=== PATIENT | female | born 1950 | race Caucasian/White ===

== ENCOUNTER 2019-10-23 10:40 | Outpatient (CLI) | payer MEDICARE ==
[~2019-10-23] VITALS: Ht 165.1 cm; Wt 112.7 kg
--- NOTE | ~2019-10-23 | OP ---
PATIENT NAME: MC PERALTA MEDICAL RECORD: [id number] :52 LOCATION:D.CAT ADMISSION DATE: SURGEON: CHERYL BARGER MD DATE OF OPERATION: 10/23/2019 PROCEDURES: 1. PTCA stent RCA. 2. PTCA stent LAD. 3. IFR LAD. 4. Left heart catheterization. 5. Selective coronary angiography. 6. Left ventriculogram. INDICATION: Angina and coronary artery disease. PROCEDURE PERFORMED: After informed consent was obtained detailed description of risks, benefits as well as alternative therapies, the patient elected to proceed with angiogram and angioplasty. The right femoral area was prepped and draped in normal sterile fashion. Right femoral artery was cannulated via modified Seldinger technique with placement of 6-Greenlandic sheath. All catheters exchanged through this sheath. FINDINGS: Left ventriculogram performed in standard 30-degree DICKSON view, reveals good cardiac wall motion, ejection fraction estimated 50% to 55%. SELECTIVE CORONARY ANGIOGRAPHY: 1. Left main is with no significant angiographic disease. 2. Left anterior descending has previously placed stents. Just after that, there appears to be 70% stenosis and IFR is abnormal. 3. Left circumflex has moderate irregularities, but no flow-limiting stenosis. The right coronary has 95% stenosis at the ostium and there is extreme pressure damping of the catheter with engagement. IMPROVEMENT AUDITOR STENT OF THE RCA: The stent used was a 2.5 x 12 mm Delight. Result was 0% residual stenosis. PTCA STENT OF THE LAD: The stent used was a 2.5 x 15 mm Delight. Result was 0% residual stenosis. OVERALL IMPRESSION: Successful PTCA stent of the LAD and RCA going from 70% to 90% initial stenosis to 0% residual. TRANSINT:[id number] Voice Confirmation ID: [id number] DOCUMENT ID: [id number] CHERYL BARGER MD CC: [id number] DICTATION DATE: 10/23/19 1505 RADIO COMMUNICATIONS SUPERINTENDENT: 10/23/192033 [facility] CLI 10/23/19 [place] [id number]
--- NOTE | ~2019-10-23 | HEMODYNAMI ---
PATIENT:MC PERALTA MEDICAL RECORD: [id number] : 52 LOCATION:[place] ADMISSION DATE: 10/23/19 Generatedon:10/23/201915:12 Patient name: MC PERALTA Patient #: [id number] SSN: : 1950 Date of study: 10/23/2019 Page: Of Hemodynamic Procedure Report Patient Data Patient Demographics Procedure consent was obtained First Name: MC Gender: Female Last Name: FABIAN : 1950 [facility] Initial: SARAY Age: 69 year(s) Patient #: [id number] Race: Additional ID: [id number] Contact details Address: [place] [address] State: [place] City: [place] Zip code: [address] Past Medical History Allergies Allergen Reaction Date Comments Reported Other allergy 10/23/2019 rocephin Admission Admission Data Admission Date: 10/23/2019 Admission Time: 10:40 Arrival Date: 10/23/2019 Arrival Time: 0:00 Admit Source: Other Insurance Payor: Medicare [facility] #: [id number] Height (in.): 64.96 BSA: 2.17 (m2) Height (cm.): 165 BMI: 41.51 (kg/m2) Weight (lbs.): 249.12 Weight (kg.): 113 Lab Results Lab Result Date: 10/23/2019 Lab Result Time: 0:00 Biochemistry Name Units Result Min Max BUN mg/dl 19 --(----)*- 7 18 Creatinine mg/dl 1.2 --(---*)-- 0.6 1.3 eGFR ml/min 47 *-(----)-- 90 120 NONAFRICAN CBC Name Units Result Min Max Hematocrit % 37.8 *-(----)-- 42 54 Hemoglobin g/dl 12 *-(----)-- 13.5 17.5 Procedure Procedure Types Cath Procedure Diagnostic Procedure LHC LHC w/Coronaries Sedation Charges Moderate Sedation up to 15 minutes PCI Procedure Coronary Stent Coronary Stent Initial x2 Hemochron ACT Test Procedure Description Procedure Date Procedure Date: 10/23/2019 Procedure Start Time: 14:42 Procedure End Time: 15:06 Procedure Staff Name Function Rosas Myles MD Performing Physician Maria Fernanda Meyers RT Monitor Daija Yin RT Scrub Maricruz Garcia RN Nurse Indication Angina Procedure Data Cath Procedure Fluoroscopy Diagnostic fluoroscopy Total fluoroscopy Time: 4.6 time: 4.6 min min Diagnostic fluoroscopy Total fluoroscopy dose: dose: 642.64 mGy 642.64 mGy Contrast Material Contrast Material Type Amount (ml) Isovue 300 101 Entry Location Entry Primary Successful Side Size Upsize Upsize Entry Closure Succes sful Closure Location (Fr) 1 (Fr) 2 (Fr) Remarks Device Remarks Femoral Right 5 Fr 6 Fr Exoseal artery Short Estimated blood loss: 10 ml Diagnostic catheters Device Type Used For End Catheter Placement MULTIPACK Pigtail 5 Fr LV Angiography catheter MULTIPACK JL 4.0 5Fr Left Coronary catheter Angiography MULTIPACK 3DRC 5Fr Right Coronary catheter Angiography Procedure Complications No complications Procedure Medications Medication Administration Route Dosage 0.9% NaCl I.V. 100 ml/hr Oxygen etCO2 Nasal cannula 2 l/min Lidocaine 2% added to field 20 Heparin Flush Bag added to field 2 bags (1000units/500ml NS) Versed I.V. 2 mg Fentanyl I.V. 50 mcg Versed I.V. 2 mg Fentanyl I.V. 50 mcg Versed I.V. 1 mg Heparin Bolus I.V. 4000 units Integrilin (Bolus I.V. 10.2 ml 2mg/ml) Plavix P.O. 600 mg Hemodynamics Rest BSA: 2.17 (m2) HGB: 12 (g/dl) O2 Consumption: Estimated: 193.72 (ml/min) O2 Cons umption indexed: Estimated:89.27 (ml/min/m) Heart Rate: 61 (bpm) Snapshots Pre Cath Intra NCS Post Cath Vital Signs Time Heart Resp SPO2 etCO2 NIBP (mmHg) Rhythm Pain Sedation Rate (ipm) (%) (mmHg) Status Level (bpm) 14:19:38 71 20 96 26.6 121/58(92) NSR 0 (11) 10(A) , No pain 14:23:52 81 18 97 25.8 120/59(82) NSR 0 (11) 10(A) , No pain 14:28:08 65 15 98 29.6 102/50(69) NSR 0 (11) 10(A) , No pain 14:32:16 67 15 97 27.3 114/53(88) NSR 0 (11) 10(A) , No pain 14:36:26 68 13 98 27 113/53(90) NSR 0 (11) 10(A) , No pain 14:40:38 66 13 97 12 95/53(79) NSR 0 (11) 10(A) , No pain 14:44:46 65 13 97 15.2 103/51(86) NSR 0 (11) 10(A) , No pain 14:48:54 67 13 97 15.7 107/57(85) NSR 0 (11) 10(A) , No pain 14:53:04 65 12 98 16 105/53(73) NSR 0 (11) 10(A) , No pain 14:57:15 70 16 97 28.1 119/53(81) NSR 0 (11) 10(A) , No pain 15:01:28 68 16 94 28.1 134/64(98) NSR 0 (11) 10(A) , No pain 15:06:27 70 15 96 24.3 130/65(101) NSR 0 (11) 10(A) , No pain Medications Time Medication Route Dose Verified Delivered Reason Notes Effectiveness by by 14:18:18 0.9% NaCl I.V. 100 Rosas Maricruz used for ml/hr Shameka Garcia houseman 14:18:25 Oxygen etCO2 2 Rosas Maricruz used for Nasal l/min Shameka Garcia procedure cannula RN 14:18:29 Lidocaine 2% added 20ml Rosas Pillai for local to vial Shameka Myles MD anesthetic field 14:18:33 Heparin Flush added 2 Rosas Rosas used for Bag to bags Shameka Myles MD procedure (1000units/500ml field NS) 14:22:00 Heparin Bolus I.V. 4000 Rosas Maricruz for verif ied units Shameka Garcia anticoagulation with Dr. ESDRAS Myles 14:39:27 Versed I.V. 2 mg Rosas Maricruz for sedation Shameka Garcia RN 14:39:40 Fentanyl I.V. 50 Rosas Gimenezyla for sedation mcg Shameka Garcia RN 14:43:16 Versed I.V. 2 mg Rosas Gimenezyla for sedation Shameka Garcia RN 14:43:20 Fentanyl I.V. 50 Rosas Maricruz for sedation mcg Shameka Garcia RN 14:49:15 Versed I.V. 1 mg Rosas Gimenezyla for sedation Shameka Garcia RN 14:53:16 Integrilin I.V. 10.2 Rosas Gimenezyla for (Bolus 2mg/ml) ml Shameka Garcia antiplatelet RN therapy 14:53:29 Plavix P.O. 600 Rosas Ropera for mg Shameka Garcia antiplatelet RN therapy Procedure Log Time Note 13:48:04 Informed consent obtained and on chart 13:49:16 Diagnostic Cath Status : Elective 13:50:13 Indication : Angina 13:50:25 Patient allergic to Other allergyrocephin 13:50:30 Arrival Date: 10/23/2019 12:00:00 AM 13:50:31 Admit Source: Other 13:50:35 Insurance Payor : Medicare 14:06:31 Patient Height : 64.96 inches 14:06:35 Patient Weight : 249.12 lbs 14:07:16 Lab Result : eGFR NONAFRICAN 47 ml/min 14:07:16 Lab Result : Creatinine 1.2 mg/dl 14:07:16 Lab Result : BUN 19 mg/dl 14:07:16 Lab Result : Hematocrit 37.8 % 14:07:16 Lab Result : Hemoglobin 12 g/dl 14:07:33 Procedure Status Elective Heart Cath (OP). 14:07:39 Maricruz Garcia RN sent for patient. Start room use. 14:07:43 Time tracking: Regular hours (M-F 7:00 - 5:00) 14:07:51 Plan of Care:Hemodynamics will remain stable., Cardiac rhythm will remain stable., Comfort level will be maintained., Respiratory function will remain adequate., Patient/ family verbilizes understanding of procedure., Procedure tolerated without complication., Recovers from procedure without complications.. 14:11:08 Patient received from Pre/Post Procedure Room to [facility] 3 Alert and oriented. Tansferred to table in Supine position. 14:11:10 Warm blankets applied, and batsheva hugger turned on for patient comfort. 14:11:10 Correct patient and procedure confirmed by team. 14:11:11 ECG and BP/O2 sat monitors applied to patient. 14:18:10 Vital chart was started 14:18:18 0.9% NaCl 100 ml/hr I.V. was administered by Maricruz Garcia RN; used for procedure; Verbal order read back and verified. 14:18:25 Oxygen 2 l/min etCO2 Nasal cannula was administered by Maricruz Garcia RN ; used for procedure; Verbal order read back and verified. 14:18:29 Lidocaine 2% 20ml vial added to field was administered by Rosas Myles MD; for local anesthetic; Verbal order read back and verified. 14:18:33 Heparin Flush Bag (1000units/500ml NS) 2 bags added to field was administered by Rosas Myles MD; used for procedure; Verbal order read back and verified. 14:22:00 Heparin Bolus 4000 units I.V. was administered by Maricruz Garcia RN; for anticoagulation; verified with Dr. Myles Verbal order read back and verified. 14:24:20 Baseline sample Acquired. 14:24:24 Rhythm: sinus rhythm 14:24:27 Full Disclosure recording started 14:24:27 - 14:24:34 H&P Date Dictated: 10/23/2019 H&P Addendum completed by physician on day of procedure. (MUST COMPLETE FOR ALL OUTPATIENTS), New H&P dictated by physician.. 14:24:36 Pre-procedure instructions explained to patient. 14:24:37 Pre-op teaching completed and patient verbalized understanding. 14:24:45 Family in patients room. 14:24:48 Patient NPO since Midnight. 14:24:51 Is the patient allergic to Iodine/contrast media? No. 14:25:00 Was the patient premedicated? Yes 14:25:04 Is patient on blood thinner?No 14:25:08 Patient diabetic? Yes. 14:25:25 If diabetic: On Metformin? No 14:25:40 ----Pre-sedation anethsthesia assessment.---- 14:25:44 Previous problem with sedation/anesthesia? No ? 14:25:47 Snore? Yes 14:25:49 Sleep apnea? No 14:25:52 Deviated septum? No 14:25:55 Opens mouth fully? Yes 14:25:59 Sticks out tongue? Yes 14:26:13 Airway obstruction? Yes COPD 14:26:22 Dentures? No ? 14:26:27 Pre procedure: right dorsailis pedis pulse 1+ Palpable, but thready & weak; easily obliterated 14:26:46 IV patent on arrival in left forearm with 0.9% NaCl at [facility]. 14:27:06 Lab results completed and on chart. 14:30:35 Stress Test: no; N/A ? 14:33:42 Risk of Mortality: 0.1 14:33:47 Risk of blood transfusion: 1.7 14:33:51 Risk of JOSE: 2.3 14:33:57 Right groin area was prepped with chlora-prep and draped in sterile fashion 14:33:59 Alarms reviewed by R. N. 14:33:59 Sharps counted by scrub and verified by R.N. 14:34:07 Use device set Femoral Dx 14:34:09 ACIST Syringe (40075) opened to sterile field. 14:34:09 Bag Decanter (2002S) opened to sterile field. 14:34:10 Medline Cath Pack ([id number]) opened to sterile field. 14:34:12 ACIST Hand Control (58483) opened to sterile field. 14:34:13 ACIST Manifold (00873) opened to sterile field. 14:34:14 DIAGNOSTIC Multipack 5Fr catheter set ([id number]) opened to sterile field. 14:34:14 Tegaderm 4 x 4 (1626W) opened to sterile field. 14:34:17 SHEATH 5FR [place] (NSV330) opened to sterile field. 14:34:17 GIGIALD Guide Wire (123-938) opened to sterile field. 14:35:38 Zero performed for pressure channel P1 14:38:02 Zero performed for pressure channel P1 14:38:26 Physician arrived 14:38:27 --------ALL STOP TIME OUT------ 14:38:28 Final Timeout: patient, procedure, and site verified with staff and physician. All members of the team are in agreement. 14:38:30 Right groin site verified by team. 14:38:35 Fire Safety Assessment: A--An alcohol-based skin anteseptic being used preoperatively., C--Open oxygen or nitrous oxide is being used., D--An ESU, laser, or fiber-optic light is being used. 14:38:38 Physical assessment completed. ASA score P 2 - A patient with mild systemic disease as per Rosas Myles MD. 14:38:45 3a) 45-59 Moderately reduced kidney function. 14:38:49 Maximum allowable contrast dose (3.7 X eGFR X 0.75)130 ml. 14:38:55 Sedation plan: IV Moderate Sedation Medication:Versed, Fentanyl 14:39:27 Versed 2 mg I.V. was administered by Maricruz Garcia RN; for sedation; Verbal order read back and verified. 14:39:40 Fentanyl 50 mcg I.V. was administered by Maricruz Garcia RN; for sedation ; Verbal order read back and verified. 14:42:12 Procedure started. 14:42:50 Local anesthetic to right femoral artery with Lidocaine 2% by Rosas Myles MD.INITIAL ACCESS ONLY 14:43:16 Versed 2 mg I.V. was administered by Maricruz Garcia RN; for sedation; Verbal order read back and verified. 14:43:17 A 5 Fr sheath was inserted into the Right Femoral artery 14:43:20 Fentanyl 50 mcg I.V. was administered by Maricruz Garcia RN; for sedation ; Verbal order read back and verified. 14:43:32 A MULTIPACK Pigtail 5 Fr catheter was advanced over the wire and used for LV Angiography. 14:43:37 LV gram done using DICKSON 14:43:40 Injector settings: Ml/sec: 5, Volume: 15, 14:44:01 EF : 60 % 14:44:06 Catheter removed. 14:44:12 A MULTIPACK JL 4.0 5Fr catheter was advanced over the wire and used for Left Coronary Angiography. 14:44:27 LCA angiography performed. 14:44:31 Injector settings: Ml/sec: 3, Volume: 6, 14:45:08 INFLATOR Merit BasixCompak (DP4419) opened to sterile field. 14:45:[address] Verrata Plus pressure wire (48008S) opened to sterile field. 14:45:38 Catheter removed. 14:46:06 A MULTIPACK 3DRC 5Fr catheter was advanced over the wire and used for Right Coronary Angiography. 14:46:57 Injector settings: Ml/sec: 3, Volume: 6, 14:47:02 Catheter removed. 14:47:09 Proceeding to intervention. 14:47:54 SHEATH 6FR [place] (PGY443) opened to sterile field. 14:49:09 Sheath upsized to a 6 Fr Short. 14:49:15 Versed 1 mg I.V. was administered by Maricruz Garcia RN; for sedation; Verbal order read back and verified. 14:49:33 GUIDE 6FR XBLAD 3.5 catheter ([id number]) opened to sterile field. 14:49:44 6 Fr XBLAD 3.5 guide catheter was inserted over the wire 14:49:51 FFR/IFR wire advanced. 14:51:15 Wire advanced across lesion. 14:51:26 ACC Pre-intervention PERRY Flow is 3. 14:51:38 Pre PCI Site: [place] mLAD has 70% stenosis. 14:52:47 mLAD lesion measured at 0.86 with IFR 14:53:16 Integrilin (Bolus 2mg/ml) 10.2 ml I.V. was administered by Maricruz humphreys RN; for antiplatelet therapy; Verbal order read back and verified. 14:53:29 Plavix 600 mg P.O. was administered by Maricruz Garcia RN; for antiplatelet therapy; Verbal order read back and verified. 14:53:48 Place stent Inflation Number: 1 A JESSIKA RX 2.5 x 18 stent ([id number]) was prepped and advanced across the Mid LAD . The stent was deployed at 19 SILVIA for 0:00 (min:sec) . 14:53:58 Stent catheter was removed intact over wire. 14:54:01 Wire removed. 14:54:02 Guide catheter removed. 14:54:05 ACC Post-intervention PERRY Flow is 3. 14:54:14 Post PCI Site: [place] mLAD has 0% stenosis. 14:54:18 GUIDE 6FR HS I catheter (LA6HSI) opened to sterile field. 14:55:06 6 Fr HS1 guide catheter was inserted over the wire 14:55:39 FFR/IFR wire advanced. 14:55:59 Wire removed. 14:56:22 CHOICE PT Extra Support 182cm wire ([id number]) opened to sterile field. 14:56:36 CHOICE PT 180 wire advanced. 14:57:02 Pre PCI Site: [place] RCA has 95% stenosis. 14:57:12 ACC Pre-intervention PERRY Flow is 3. 14:58:44 Place stent Inflation Number: 1 A JESSIKA RX 2.5 x 12 stent ([id number]) was prepped and advanced across the Prox RCA . The stent was deployed at 19 SILVIA for 0:00 (min:sec) . 14:59:34 EXOSEAL 6Fr (EX600) opened to sterile field. 14:59:41 Stent catheter was removed intact over wire. 14:59:42 Wire removed. 14:59:43 Guide catheter removed. 14:59:48 ACC Post-intervention PERRY Flow is 3. 15:00:04 Sheath removed intact; hemostasis achieved with Exoseal to the Right Femoral artery. 15:00:07 Procedure ended.(Physican Out) 15:00:44 Contrast amount:Isovue 300 101ml. 15:00:53 Fluoroscopy time 04.60 minutes. 15:01:06 Fluoroscopy dose: 642.64 mGy 15:01:06 Flurop Dose total: 642.64 15:01:19 Dose Area Product 3600.90 mGy/cm. 15:01:23 Maximum allowable dose exceeded? No. 15:01:25 Sharps counted by scrub and verified by R.N. 15:01:27 Insertion/operative site no bleeding no hematoma. 15:01:32 Post-op/insertion site Right Femoral artery dressed using a 4 x 4 and Tegaderm. 15:02:16 Post right femoral artery:stable 15:02:18 Post Procedure Pulses reassessed and unchanged 15:02:22 Post-procedure physical assessment completed. ASA score P 2 - A patient with mild systemic disease as per Rosas Myles MD. 15:02:26 Post procedure rhythm: unchanged. 15:02:30 Estimated blood loss: 10 ml 15:02:32 Post procedure instruction explained to patient.Patient verbalizes understanding. 15:02:33 Patient needs reinforcement of post procedure teaching. 15:03:58 ACT drawn and resulted at 317 seconds. (normal therapeutic range 180-24 0 seconds). 15:05:04 Procedure type changed to Cath procedure, Diagnostic procedure, [facility], C w/Coronaries, Sedation Charges, Moderate Sedation up to 15 minutes, PCI procedure, Coronary Stent, Coronary Stent Initial x2, Hemochron ACT Test 15:05:07 Procedure and supply charges have been captured, reviewed, submitted an d are correct. 15:06:17 Procedure Complication : No complications 15:06:25 Vital chart was stopped 15:06:29 [facility] Findings: MVD- PCI performed (see procedure note) 15:06:31 Operative report dictated upon procedure completion. 15:06:32 See physician's report for complete and final results. 15:06:49 Report given to Pre/Post Procedure Room. 15:06:54 Patient transfered to Pre/Post Procedure Room with Stretcher. 15:06:57 Procedure ended. 15:06:57 Full Disclosure recording stopped 15:07:18 ACC-PCI Only Patient was given prescriptions, or instructed by Rosas Myles MD to start/continue the following medications upon discharge: Plavix 15:09:05 End room use (Document Last) Intervention Summary Intervention Notes Time ActionType Lesion and Equipment Used Action# Pressure Duration Attributes 14:53:48 Place stent Mid LAD JESSIKA RX 2.5 x 1 19 00:00 18 stent ([id number]) 14:58:44 Place stent Prox RCA JESSIKA RX 2.5 x 1 19 00:00 12 stent ([id number]) Device Usage Item Name Manufacture Quantity Catalog Number Hospital Part Current Minimal Lot# / Charge Number Stock Stock Serial# Code ACIST Syringe Acist 1 26624 924250 250144 861962 20 (33913) Medical Systems Inc Bag Decanter Microtek 1 [id number] 56309 164542 5 () Medical Inc. Medline Cath Medline 1 [id number] 839239 78839 913032 5 Pack ([id number]) ACIST Hand Acist 1 04355 337507 583578 940414 5 Control Medical (63691) Systems Inc ACIST Manifold Acist 1 92663 801316 300666 659748 5 (26676) Medical Systems Inc DIAGNOSTIC Cardinal 1 MC7544 478288 94760 807254 30 Multipack 5Fr Health catheter set ([id number]) Tegaderm 4 x 4 3M 1 1626W 126576 987722 039836 5 (1626W) SHEATH 5FR Terumo 1 HQW081 976126 312682 077658 5 [place] (HLW228) EMERALD Guide Cardinal 1 502-455 399777 683524 222334 5 Wire (502-455) Health MULTIPACK Cardinal 1 989424 5 Pigtail 5 Fr Health catheter MULTIPACK JL Cardinal 1 105778 5 4.0 5Fr Health catheter INFLATOR Merit Merit 1 JH2902 166462 294059 404556 15 [employer] ([id number]) [address] 1 20337B 940786 [id number] 847774 5 Verrata Plus pressure wire (01527Z) MULTIPACK 3DRC Cardinal 1 230639 5 5Fr catheter Health SHEATH 6FR Terumo 1 WYZ813 835922 463864 710820 40 [place] (SLS919) GUIDE 6FR Cardinal 1 [id number] 799812 689280 652218 10 XBLAD 3.5 Health catheter ([id number]) JESSIKA RX 2.5 x Medtronic 1 [id number] 809769 3891676 568796 5 [id number] 18 stent ([id number]) GUIDE 6FR HS I Medtronic 1 LA6HSI 739729 79570 475872 1 catheter (LA6HSI) CHOICE PT Frederick 1 [id number] 612219 248304 322333 5 Extra Support Scientific 182cm wire ([id number]) JESSIKA RX 2.5 x Medtronic 1 [id number] 742509 5696605 341294 5 [id number] 12 stent ([id number]) EXOSEAL 6Fr Cardinal 1 EX600 262388 343279 590119 10 (EX600) Health Signature Audit [place] Stage Time Signature Unsigned Intra-Procedure 10/23/2019 Maria Fernanda 3:09:27 PM Luiig RT(R) (CV) Intra-Procedure 10/23/2019 Maricruz Garcia 3:11:37 PM RN Intra-Procedure 10/23/2019 Rosas Myles 3:12:01 PM MD [facility] [address] [place] [address]
[2019-10-23] MEDS ORDERED: TRESIBA FL100 UNIT/1 SC (11:06)
[2019-10-23] MEDS ORDERED: TAZTIA XT360 MG PO (11:07)
[2019-10-23] MEDS ORDERED: BUPROPION XL300 MG PO (11:07)
[2019-10-23] MEDS ORDERED: INVOKANA300 MG PO (11:08)
[2019-10-23] MEDS ORDERED: POTASSIUM CHLOR8 ME1 PO (11:08)
[2019-10-23] MEDS ORDERED: ADVAIR 250-501 EAC1 INH (11:09)
[2019-10-23] MEDS ORDERED: LIPITOR20 MG PO (11:09)
[2019-10-23] MEDS ORDERED: HUMULIN R100 UNIT/1 SC (11:09)
[2019-10-23] MEDS ORDERED: GABAPENTIN300 MG PO (11:10)
[2019-10-23] MEDS ORDERED: ISOSORBIDE MONO60 M1 PO (11:11)
[2019-10-23] MEDS ORDERED: ATARAX 25 MG TA25 MG PO (11:11)
[2019-10-23] MEDS ORDERED: TOPROL XL50 MG PO (11:12)
[2019-10-23] MEDS ORDERED: NEXIUM40 MG PO (11:12)
[2019-10-23] MEDS ORDERED: MELATONIN10 M1 PO (11:13)
[2019-10-23] MEDS ORDERED: PRENAVITE1 TAB PO (11:13)
[2019-10-23] MEDS ORDERED: BAYER CHEWABLE81 MG PO (11:14)
[2019-10-23] MEDS ORDERED: MAG-OXIDE400 MG PO (11:14)
[2019-10-23] MEDS ORDERED: NITROSTAT0.4 MG SL (11:15)
[2019-10-23 11:45] VITALS: BP 102/40; Ht 165.1 cm; Wt 112.7 kg
[2019-10-23 11:48] LABS: BASOPHILS 0.2 % (0-2); EOSINOPHILS 0.7 % (0-7); HEMATOCRIT 37.8 % (36.0-48.0); IMMATURE GRANULOCYTES 0.2 % (0-5); LYMPHOCYTES 37.2 % (15-50); MCH 25.8 pg (26.0-34.0); MCHC 31.7 g/dL (31.0-37.0); MCV 81.3 fL (80.0-100.0); MEAN PLATELET VOLUME 9.4 fL (7.4-10.4); MONOCYTES 4.5 % (2-11); NEUTROPHILS 57.2 % (40-80); PLATELET COUNT 375 10x3/uL (130-400); RBC 4.65 10x6/uL (4.00-5.40); RDW 19.3 % (11.5-14.5); WBC 12.2 10x3/uL (4.8-10.8)
[2019-10-23 12:10] LABS: CALCIUM 8.8 mg/dL (8.5-10.1); CARBON DIOXIDE 19.4 mmol/L (21.0-32.0); CHOL - HDL RATIO 2.3 ratio (2.3-4.1); CREATININE - SERUM 1.2 mg/dL (0.6-1.3); LDL-HDL RATIO 0.9 ratio (1.5-3.5); POTASSIUM - SERUM 4.4 mmol/L (3.5-5.1)
--- NOTE | 2019-10-23 15:20 | NUR ---
RECEIVED TO ROOM VIA STRETCHER FROM MARKETING CONTENT SPECIALIST. MONITORING INITIATED. R GROIN DRESSING W TEGADERM AND 4X4 CDI, GROIN SOFT, NO S/S BLEEDING OR HEMATOMA. INSTRUCTED TO KEEP HEAD ON PILLOW AND RLE STRAIGHT AND STILL. DTR AT BEDSIDE.
--- NOTE | 2019-10-23 15:30 | NUR ---
DR BARGER HERE SPEAKING W PT AND FAMILY.
--- NOTE | 2019-10-23 15:45 | NUR ---
R GROIN CDI, SOFT, NO S/S BLEEDING OR HEMATOMA. TEGADERM/4X4 CDI. FAMILY AT BEDSIDE.
--- NOTE | 2019-10-23 16:00 | NUR ---
R GROIN CDI, SOFT. REPOSITIONED TO [facility] FOR COMFORT, TILTED BED [facility] [place] FOR COMFORT. FAMILY AT BEDSIDE.
--- NOTE | 2019-10-23 16:15 | NUR ---
R GROIN CDI, SOFT. NO S/S BLEEDING OR HEMATOMA. PPP.
[2019-10-23] MEDS ORDERED: PLAVIX75 MG PO (16:40)
--- NOTE | 2019-10-23 16:45 | NUR ---
R GROIN CDI, SOFT, NO S/S BLEEDING OR HEMATOMA. BP 123/57, NSR 65, SAT 95% RA. FAMILY AT BEDSIDE.
--- NOTE | 2019-10-23 17:04 | NUR ---
R GROIN CDI, NO S/S BLEEDING OR HEMATOMA. ASSISTED ONTO BEDPAN FOR VOICED NEED TO VOID BLADDER. SHANKAR 126/49, ST 96% RA, NSR 64.FAMILY AT BEDSIDE.
--- NOTE | 2019-10-23 17:30 | NUR ---
R GROIN NO S/S BLEEDING OR HEMATOMA. REMAINS ON BEDPAN, STATES "I'M JUST GOING A LITTLE DRIBBLE AT A TIME, I'D LIKE A LITTLE MORE TIME."
--- NOTE | 2019-10-23 18:02 | NUR ---
R GROIN CDI, SOFT. NO S/S BLEEDING OR HEMATOMA. PPP. BP 124/52, NSR 63, RA SAT 96%
--- NOTE | 2019-10-23 18:15 | NUR ---
FAMILY AT BEDSIDE. R GROIN CDI, SOFT, NO S/S BLEEDING OR HEMATOMA.
--- NOTE | 2019-10-23 18:30 | NUR ---
R GROIN SOFT, NO S/S BLEEDING OR HEMATOMA. IV DC TIP INTACT. MONITORING DC. PT DRESSING W ASSIST OF DTR.
--- NOTE | 2019-10-23 18:50 | NUR ---
DC INSTRUCTIONS REVIEWED, PT DC HOME VIA WHEELCHAIR TO PRIVATE CAR WITH DTR. PT HAS ALL BELONGINGS.
== END 2019-10-23 18:50 | disposition home or self-care (01) ==
LOC: D.CATH 10:40
PROVIDERS: ATTEND Internal Medicine Interventional Cardiology
DX: I25.110 Atherosclerotic heart disease of native coronary artery with unstable angina pectoris (principal); R07.9 Chest pain, unspecified; R06.09 Other forms of dyspnea; I10 Essential (primary) hypertension
CPT/HCPCS: 93458; 93571; C9600 ×2